=== PATIENT | female | born 1960 | race Caucasian/White ===

== ENCOUNTER 2018-02-09 10:04 | Outpatient (CLI) | payer BC, MEDICARE ==
[~2018-02-09] VITALS: Ht 149.9 cm; Wt 90.7 kg
[2018-02-09 10:41] LABS: TOTAL HEMOGLOBIN 8.9 G/dl (12.0-16.0)
[2018-02-09] MEDS ORDERED: albuterol 2.5 MG/3 ML nebule NEB PRN (11:05)
== END 2018-02-09 23:59 | disposition home or self-care (01) ==
LOC: RT 10:04
PROVIDERS: ATTEND Internal Medicine Pulmonary Disease
DX: J44.9 Chronic obstructive pulmonary disease, unspecified (principal); R06.09 Other forms of dyspnea; F17.200 Nicotine dependence, unspecified, uncomplicated; Z79.899 Other long term (current) drug therapy
CPT/HCPCS: 85018; 94060; 94640; 94727; 94729; 94760